=== PATIENT | female | born 1995 | race Caucasian/White ===

== ENCOUNTER 2016-03-22 17:33 | Emergency (ER) | payer BC ==
[~2016-03-22] VITALS: Ht 177.8 cm; Wt 75.7 kg
[2016-03-22 17:36] VITALS: TEMP 36.6; Ht 177.8 cm; Wt 75.7 kg
[2016-03-22] MEDS ORDERED: ONDANSETRON INJ 2 MG/ML 2 ML VIAL IV STA (17:53)
[2016-03-22] MEDS ORDERED: NORETAB29 PO (18:01)
[2016-03-22 18:35] LABS: URINE APPEARANCE CLEAR (CLEAR); URINE BILIRUBIN NEG (NEG); URINE COLOR YELLOW; URINE NITRITE NEG (NEG); URINE SPECIFIC GRAVITY 1.009 (1.000-1.030); UROBILINOGEN NEG (NEG); ZZUR CULT IF INDIC CLEAN CATCH NO
[2016-03-22 18:42] LABS: REVIEW REQ? NO
[2016-03-22 18:43] LABS: MANUAL MICROSCOPIC REQUIRED? NO
[2016-03-22 19:14] LABS: BASO % 0.5 %; BASO ABS # 0.03 K/uL (0-0.2); COMPLETE YES; EOS % 10.1 %; HEMATOCRIT 39.3 % (37-47); IG% 0.3 %; LYMPH % 41.9 %; LYMPH ABS # 2.74 K/uL (1.2-3.4); MEAN CELL VOLUME 83.6 fL (80-100); MEAN CORPUSCULAR HEMOGLOBIN 28.3 pg (25-34); MEAN CORPUSCULAR HGB CONC 33.8 g/dl (32-36); MEAN PLATELET VOLUME 9.1 fL (7.4-10.4); NEUT % 39.2 %; PLATELET COUNT 335 K/uL (130-400); WHITE BLOOD COUNT 6.54 K/uL (4.8-10.8)
[2016-03-22 19:29] LABS: BUN/CREATININE RATIO 15.1 (10-20); CALCIUM 8.6 mg/dl (8.5-10.1); CREATININE 0.86 mg/dl (0.60-1.20); POTASSIUM 3.8 mmol/L (3.5-5.1)
--- NOTE | 2016-03-22 19:57 | DIAGNOSTIC IMAGING REPORT ---
BILIARY ULTRASOUND CLINICAL HISTORY: epigastric pain, nausea COMPARISON STUDY: No previous studies for comparison. FINDINGS: The pancreas appears sonographically normal. The liver appears sonographically normal. The gallbladder is contracted but appears otherwise normal. There is no ductal dilatation. The common bile duct measures 4 mm. There is no right-sided hydronephrosis. IMPRESSION: Normal biliary ultrasound. Electronically signed by: Skyler Jeffers M.D. 03/22/2016 7:55 PM Dictated Date/Time: 03/22/2016 7:54 PM
--- NOTE | 2016-03-22 20:08 | DIAGNOSTIC IMAGING REPORT ---
ABDOMEN 2VIEW W/PA CHEST RTN CLINICAL HISTORY: epigastric pain, nausea COMPARISON STUDY: No previous studies for comparison. FINDINGS: The erect chest reveals no evidence of free air. There is no evidence of focal pulmonary consolidation.] Erect and supine views of the abdomen reveal no abnormally dilated loops of large or small bowel. There are no transition zone to indicate bowel obstruction. IMPRESSION: No evidence of bowel obstruction. No evidence of free air. Electronically signed by: Skyler Jeffers M.D. 03/22/2016 8:07 PM Dictated Date/Time: 03/22/2016 8:07 PM
[2016-03-22] MEDS ORDERED: ONDA4TAB10 SL (20:39)
[2016-03-22] MEDS ORDERED: OMEP20CA59 PO (20:39)
[2016-03-22] MEDS ORDERED: RANITAB33 PO (20:39)
--- NOTE | 2016-03-22 20:39 | EMERGENCY ROOM VISIT NOTE ---
History First contact with patient: 17:38 Chief Complaint: GI ASSESSMENT Stated Complaint: CHEST PAINS,ABD PAIN Nursing Triage Summary: Patient c/o abdominal pain for 2 years that now radiates to chest for the past 5 days. Patient denies N/V/D. History of Present Illness The patient is a 20 year old female who presents to the Emergency Room with complaints of abdominal pain which has been ongoing for the past 2 years. The patient states that over the past 2 years, she has had intermittent epigastric abdominal pain. She has previously been seen by gastroenterology, who performed an endoscopy, ultrasound and possibly a CT scan, but did not find anything other than esophageal reflux. She has taken acid reducing medications as well as antihistamines in the past, but does not take them now. She states that the pain does not seem to follow a specific pattern, but does get worse after eating. She states that over the past few days, she has been vomiting secondary to the pain and the pain has been radiating down into her abdomen and up into her chest. At times, she has difficulty taking a deep breath due to the pain. She states that it is worse with any food that she eats. She rates her current discomfort a 2/10, but states that her pain becomes much more severe at times. She denies any changes in bowel movements, blood in her stools , blood in her vomit, urinary symptoms, vaginal discharge/bleeding, sore throat , headache or neck pain. She denies any fevers/chills. Review of Systems A complete 10-point Review of Systems was discussed with the patient, with pertinent positives and negatives listed in the History of Present Illness. All remaining Review of Systems questions can be considered negative unless otherwise specified. Past Medical/Surgical History Medical Problems: (1) No significant medical problems Surgical Problems: (1) No significant past surgical history Social History Smoking Status: Never Smoker Alcohol Use: occasionally Marital Status: single Occupation Status: [employer] student Current/Historical Medications Scheduled Norethindrone Acetate-Ethinyl (Lo Loestrin Fe), 1 TAB PO DAILY Omeprazole (Prilosec), 40 MG PO DAILY Ondasetron Odt (Zofran Odt), 4 MG SL Q6H Ranitidine Hcl (Zantac), 75 MG PO DAILY Allergies Coded Allergies: No Known Allergies (Unverified , 03/22/16) Physical Exam Vital Signs Date Time Temp Pulse Resp B/P Pulse Ox O2 Delivery O2 Flow Rate FiO2 03/22/16 20:50 76 20 132/78 98 03/22/16 19:14 80 20 128/71 100 Room Air 03/22/16 17:36 36.6 101 18 132/84 95 Room Air Physical Exam VITALS: Vitals are noted on the nurse's note and reviewed by myself. Vital signs stable. GENERAL: This is a 20-year-old female, in no acute distress, nondiaphoretic, well-developed well-nourished. SKIN: Capillary reflex less than 2 seconds. HEENT: Normocephalic. PERRLA. EOMI. Nares patent. Mucous membranes moist. Neck is supple without nuchal rigidity. HEART: Regular rate and rhythm without murmurs gallops or rubs. LUNGS: Clear to auscultation bilaterally without wheezes, rales or rhonchi. ABDOMEN: Positive bowel sounds x 4. Soft, with mild tenderness of the epigastric region. Perera sign negative. No guarding or rebound tenderness. NEURO: Patient was alert and oriented to person place and time. Medical Decision & Procedures ER Provider Diagnostic Interpretation: BILIARY ULTRASOUND FINDINGS: The pancreas appears sonographically normal. The liver appears sonographically normal. The gallbladder is contracted but appears otherwise normal. There is no ductal dilatation. The common bile duct measures 4 mm. There is no right-sided hydronephrosis. IMPRESSION: Normal biliary ultrasound. ABDOMEN 2VIEW W/PA CHEST RTN FINDINGS: The erect chest reveals no evidence of free air. There is no evidence of focal pulmonary consolidation.] Erect and supine views of the abdomen reveal no abnormally dilated loops of large or small bowel. There are no transition zone to indicate bowel obstruction. IMPRESSION: No evidence of bowel obstruction. No evidence of free air. Laboratory Results 03/22/16 18:58 Red Blood Count 4.70, Mean Corpuscular Volume 83.6, Mean Corpuscular Hemoglobin 28.3, Mean Corpuscular Hemoglobin Concent 33.8, Mean Platelet Volume 9.1, Neutrophils (%) (Auto) 39.2, Lymphocytes (%) (Auto) 41.9, Monocytes (%) (Auto) 8.0, Eosinophils (%) (Auto) 10.1, Basophils (%) (Auto) 0.5, Neutrophils # (Auto ) 2.57, Lymphocytes # (Auto) 2.74, Monocytes # (Auto) 0.52, Eosinophils # (Auto ) 0.66, Basophils # (Auto) 0.03 03/22/16 18:58 Test 03/22/16 18:20 03/22/16 18:58 Urine Color YELLOW Urine Appearance CLEAR (CLEAR) Urine pH 7.0 (4.5-7.5) Urine Specific [place] 1.009 (1.000-1.030) Urine Protein NEG (NEG) Urine Glucose (UA) NEG (NEG) Urine Ketones NEG (NEG) Urine Occult Blood NEG (NEG) Urine Nitrite NEG (NEG) Urine Bilirubin NEG (NEG) Urine Urobilinogen NEG (NEG) Urine Leukocyte Esterase NEG (NEG) Urine Test NEG (NEG) White Blood Count 6.54 K/uL (4.8-10.8) Red Blood Count 4.70 M/uL (4.2-5.4) Hemoglobin 13.3 g/dL (12.0-16.0) Hematocrit 39.3 % (37-47) Mean Corpuscular Volume 83.6 fL (80-100) Mean Corpuscular Hemoglobin 28.3 pg (25-34) Mean Corpuscular Hemoglobin Concent 33.8 g/dl (32-36) Platelet Count 335 K/uL (130-400) Mean Platelet Volume 9.1 fL (7.4-10.4) Neutrophils (%) (Auto) 39.2 % Lymphocytes (%) (Auto) 41.9 % Monocytes (%) (Auto) 8.0 % Eosinophils (%) (Auto) 10.1 % Basophils (%) (Auto) 0.5 % Neutrophils # (Auto) 2.57 K/uL (1.4-6.5) Lymphocytes # (Auto) 2.74 K/uL (1.2-3.4) Monocytes # (Auto) 0.52 K/uL (0.11-0.59) Eosinophils # (Auto) 0.66 K/uL (0-0.5) Basophils # (Auto) 0.03 K/uL (0-0.2) RDW Standard Deviation 36.9 fL (36.4-46.3) RDW Coefficient of Variation 12.0 % (11.5-14.5) Immature Granulocyte % (Auto) 0.3 % Immature Granulocyte # (Auto) 0.02 K/uL (0.00-0.02) Anion Gap 8.0 mmol/L (3-11) Est Creatinine Clear Calc Drug Dose 112.8 ml/min Estimated GFR () 112.7 Estimated GFR (Non- 97.3 BUN/Creatinine Ratio 15.1 (10-20) Calcium Level 8.6 mg/dl (8.5-10.1) Total Bilirubin 0.1 mg/dl (0.2-1) Aspartate Amino Transf (AST/SGOT) 19 U/L (15-37) Alanine Aminotransferase (ALT/SGPT) 17 U/L (12-78) Alkaline Phosphatase 54 U/L (45-117) Total Protein 6.7 gm/dl (6.4-8.2) Albumin 3.4 gm/dl (3.4-5.0) Globulin 3.3 gm/dl (2.5-4.0) Albumin/Globulin Ratio 1.0 (0.9-2) Lipase 207 U/L (73-393) Medications Administered Medications (Trade) Dose Ordered Sig/Ryley Route Start Time Stop Time Status Last Admin Dose Admin Ondansetron HCl (Zofran Inj) 4 mg NOW STAT IV 03/22/16 17:53 03/22/16 17:55 DC 03/22/16 19:11 4 MG Medical Decision Differential diagnosis includes cholecystitis, pancreatitis, gastroenteritis, colitis, gastritis, peptic ulcer disease, hepatitis, among others. The patient was evaluated as above. Labs were drawn and IV access was obtained. Imaging studies were performed and read by radiology as above. The patient was medicated with 4 mg Zofran IV. The patient was reassessed multiple times during their stay in the emergency department and remained in stable condition. The patient is a 20-year-old female who presents today complaining of ongoing epigastric abdominal pain which has worsened over the past few days. Her exam is fairly unremarkable except for some mild epigastric tenderness. She does not have a surgical abdomen. Labs revealed no leukocytosis, anemia or concerning electrolyte abnormalities. Eosinophils are slightly elevated. Urinalysis was not suggestive of infection. Urine was negative. Abdominal series was unremarkable. Right upper quadrant ultrasound was performed and was negative. I feel the patient's symptoms are likely secondary to GERD or peptic ulcer disease. She was instructed to restart the Prilosec and Zantac that she has taken previously. She was also given a prescription for Zofran. She will need to follow-up with gastroenterology within the next few weeks for further evaluation. She was instructed on worrisome symptoms which would necessitate return to the emergency department. Based on the patient's presentation, lab results, and imaging studies, I feel the patient is stable for outpatient treatment. Discharge instructions were reviewed with the patient. The patient verbalized understanding of my assessment and treatment plan and was discharged home in good condition. Impression Primary Impression: Epigastric abdominal pain Departure Information Dispostion Home / Self-Care Condition GOOD Prescriptions Ondasetron Odt (ZOFRAN ODT) 4 Mg Tab 4 MG SL Q6H for Nausea, #24 TAB Prov: Blanquita Garay PA-C 03/22/16 Ranitidine Hcl (ZANTAC) 75 Mg Tab 75 MG PO DAILY for 14 Days, #14 TAB Prov: Blanquita Garay PA-C 03/22/16 Omeprazole (Prilosec) 20 Mg Capcr 40 MG PO DAILY for 14 Days, #28 CAP Prov: Blanquita Garay PA-C 03/22/16 Referrals Grace Phan DO (PCP) Patient Instructions My [facility] Additional Instructions You have been prescribed Zofran to be used for any nausea or vomiting. Take as prescribed. Take the Prilosec and Zantac as we discussed. You should follow-up with your senior net software developer within the next 2 weeks for further evaluation. Return to the emergency department with worsening pain, worsening vomiting, fevers, or any other new/concerning symptoms.
[2016-03-22 20:50] VITALS: BP 132/78; PULSE 76; O2SAT 98
== END 2016-03-22 20:52 | disposition home or self-care (01) ==
LOC: C.EDB 17:34
DX: R10.13 Epigastric pain (principal); R11.10 Vomiting, unspecified; K21.9 Gastro-esophageal reflux disease without esophagitis